=== PATIENT | male | born 1965 | race African-American/Black ===

== ENCOUNTER 2022-12-10 17:01 | Emergency (ER) | payer OTHER, SELFPAY ==
[2022-12-10 18:52] LABS: #Eosinphils 0.1 thou/uL (0.0-0.7); #Lymphocytes 1.6 thou/uL (1.20-3.40); #Monocytes 0.2 thou/uL (0.11-0.59); #Neutrophils 1.4 thou/uL (1.40-6.50); %Basophils 0.8 % (0.0-1.0); %Eosinophils 2.2 % (0.0-10.0); %Monocytes 7.2 % (0.0-10.0); %Neutrophils 41.8 % (42.0-75.0); Hemoglobin 13.3 g/dL (14.0-18.0); Mean Corpuscular HGB CONC 33.5 g/dL (32.0-36.0); Mean Corpuscular Hemoglobin 31.7 pg (27.0-31.0); Mean Corpuscular Volume 94.6 fl (78.0-98.0); Platelet Count 135 10x3/uL (130-400); RBC Distribution Width 13.5 % (11.5-14.5); Red Blood Cell (RBC) Count 4.19 mill/uL (4.70-6.10); White Blood Cell (WBC) Count 3.4 10x3/uL (4.8-10.8)
[2022-12-10 19:03] LABS: Prothrombin Time 13.2 sec (12.0-14.7)
[2022-12-10 19:04] LABS: PTT 26.6 sec (22.9-36.1)
[2022-12-10 19:12] LABS: ALT (SGPT) 67 U/L (8-55); AST (SGOT) 94 U/L (5-34); Albumin 4.3 g/dL (3.5-5.0); Alcohol 397 mg/dL (Less than 10); Alkaline Phosphatase 75 U/L (40-110); Anion Gap 15 mmol/L (10-20); BUN (Urea Nitrogen) 6 mg/dL (8.4-25.7); Bilirubin, Total 0.5 mg/dL (0.2-1.2); Calc. Creatinine Clearance 0 mL/min (70-130); Carbon Dioxide 24 mmol/L (22-29); Chloride 98 mmol/L (98-107); Estimated GFR 73; Globulin 3.5 g/dL (2.4-3.5); Glucose 108 mg/dL (70-105); Potassium 3.7 mmol/L (3.5-5.1); Protein, Total 7.8 g/dL (6.0-8.3); Sodium 133 mmol/L (136-145)
[2022-12-11] MEDS ORDERED: Acetaminophen 500 MG TAB ONE (05:04)
== END 2022-12-11 08:37 | disposition left against medical advice (07) ==
LOC: ERS 17:01
DX: Z04.3 Encounter for examination and observation following other accident (principal); E11.9 Type 2 diabetes mellitus without complications; I10 Essential (primary) hypertension; F17.210 Nicotine dependence, cigarettes, uncomplicated
CPT/HCPCS: 36415; 70450; 80053; 80307; 85025; 85610; 85730

== ENCOUNTER 2024-12-24 12:03 | Emergency (ER) | payer SELFPAY | END 2024-12-24 14:38 | disposition left against medical advice (07) | LOC: ERS 12:03 | DX: Z53.21 Procedure and treatment not carried out due to patient leaving prior to being seen by health care provider (principal) | CPT/HCPCS: 36416 ==

== ENCOUNTER 2024-12-26 00:19 | Emergency (ER) | payer OTHER, SELFPAY | END 2024-12-26 01:50 | disposition home or self-care (01) | LOC: ERS 00:19 | DX: E11.649 Type 2 diabetes mellitus with hypoglycemia without coma (principal); I10 Essential (primary) hypertension; F17.210 Nicotine dependence, cigarettes, uncomplicated; E78.5 Hyperlipidemia, unspecified; Z79.899 Other long term (current) drug therapy | CPT/HCPCS: 36416; 99283 ==

== ENCOUNTER 2025-01-05 20:16 | Emergency (ER) | payer OTHER | END 2025-01-05 21:14 | disposition home or self-care (01) | LOC: ERS 20:16 | DX: R07.81 Pleurodynia (principal); F17.210 Nicotine dependence, cigarettes, uncomplicated; I10 Essential (primary) hypertension; E11.9 Type 2 diabetes mellitus without complications | CPT/HCPCS: 71045 ==